=== PATIENT | female | born 1960 | race African-American/Black ===

== ENCOUNTER 2016-07-13 14:24 | Outpatient (CLI) | payer MEDICARE ==
[2016-07-13 14:44] LABS: Prothrombin Time 23.7 SEC (12.0-14.7)
== END 2016-07-13 14:25 | disposition home or self-care (01) ==
LOC: BURLAB 14:24
PROVIDERS: ATTEND Nurse Practitioner
DX: I26.99 Other pulmonary embolism without acute cor pulmonale (principal)
CPT/HCPCS: 36415; 85610

== ENCOUNTER 2016-08-13 13:33 | Outpatient (CLI) | payer MEDICARE ==
[2016-08-13 14:01] LABS: Prothrombin Time 25.5 SEC (12.0-14.7)
== END 2016-08-13 13:34 | disposition home or self-care (01) ==
LOC: BURLAB 13:33
PROVIDERS: ATTEND Nurse Practitioner
DX: I26.99 Other pulmonary embolism without acute cor pulmonale (principal)
CPT/HCPCS: 36415; 85610

== ENCOUNTER 2016-09-20 14:22 | Outpatient (CLI) | payer MEDICARE ==
[2016-09-20 14:46] LABS: Prothrombin Time 28.6 SEC (12.0-14.7)
== END 2016-09-20 14:23 | disposition home or self-care (01) ==
LOC: BURLAB 14:22
PROVIDERS: ATTEND Nurse Practitioner
DX: I26.99 Other pulmonary embolism without acute cor pulmonale (principal)
CPT/HCPCS: 36415; 85610

== ENCOUNTER 2016-10-13 15:18 | Outpatient (CLI) | payer MEDICARE ==
[2016-10-13 15:55] LABS: INR-International Normal Ratio 2.8
== END 2016-10-13 15:19 | disposition home or self-care (01) ==
LOC: BURLAB 15:18
PROVIDERS: ATTEND Nurse Practitioner
DX: I26.99 Other pulmonary embolism without acute cor pulmonale (principal)
CPT/HCPCS: 36415; 85610

== ENCOUNTER 2016-11-17 13:53 | Outpatient (CLI) | payer MEDICARE ==
[2016-11-17 14:18] LABS: INR-International Normal Ratio 2.2; Prothrombin Time 25.2 SEC (12.0-14.7)
== END 2016-11-17 13:54 | disposition home or self-care (01) ==
LOC: BURLAB 13:53
PROVIDERS: ATTEND Family Medicine
DX: I26.99 Other pulmonary embolism without acute cor pulmonale (principal)
CPT/HCPCS: 36415; 85610

== ENCOUNTER 2016-12-15 14:50 | Outpatient (CLI) | payer MEDICARE ==
[2016-12-15 15:14] LABS: INR-International Normal Ratio 2.2; Prothrombin Time 25.5 SEC (12.0-14.7)
== END 2016-12-15 14:51 | disposition home or self-care (01) ==
LOC: BURLAB 14:50
PROVIDERS: ATTEND Nurse Practitioner
DX: I26.99 Other pulmonary embolism without acute cor pulmonale (principal)
CPT/HCPCS: 36415; 85610

== ENCOUNTER 2017-01-12 15:00 | Outpatient (CLI) | payer MEDICARE ==
[2017-01-12 15:51] LABS: INR-International Normal Ratio 1.9; Prothrombin Time 21.9 SEC (12.0-14.7)
== END 2017-01-12 15:01 | disposition home or self-care (01) ==
LOC: BURLAB 15:00
PROVIDERS: ATTEND Nurse Practitioner
DX: I26.99 Other pulmonary embolism without acute cor pulmonale (principal)
CPT/HCPCS: 36415; 85610

== ENCOUNTER 2017-01-27 13:15 | Outpatient (CLI) | payer MEDICARE ==
[2017-01-27 14:04] LABS: INR-International Normal Ratio 1.5; Prothrombin Time 18.4 SEC (12.0-14.7)
== END 2017-01-27 13:16 | disposition home or self-care (01) ==
LOC: BURLAB 13:15
PROVIDERS: ATTEND Nurse Practitioner
DX: I26.99 Other pulmonary embolism without acute cor pulmonale (principal)
CPT/HCPCS: 36415; 85610

== ENCOUNTER 2017-02-09 11:20 | Outpatient (CLI) | payer MEDICARE ==
[2017-02-09 11:46] LABS: INR-International Normal Ratio 1.8; Prothrombin Time 21.8 SEC (12.0-14.7)
== END 2017-02-09 11:21 | disposition home or self-care (01) ==
LOC: BURLAB 11:20
PROVIDERS: ATTEND Nurse Practitioner
DX: I26.99 Other pulmonary embolism without acute cor pulmonale (principal)
CPT/HCPCS: 36415; 85610

== ENCOUNTER 2017-02-28 14:37 | Outpatient (CLI) | payer MEDICARE ==
[2017-02-28 15:02] LABS: INR-International Normal Ratio 1.7; Prothrombin Time 20.6 SEC (12.0-14.7)
== END 2017-02-28 14:38 | disposition home or self-care (01) ==
LOC: BURLAB 14:37
PROVIDERS: ATTEND Nurse Practitioner
DX: I26.99 Other pulmonary embolism without acute cor pulmonale (principal)
CPT/HCPCS: 36415; 85610

== ENCOUNTER 2017-03-14 13:15 | Outpatient (CLI) | payer MEDICARE ==
[2017-03-14 13:40] LABS: INR-International Normal Ratio 3.2; Prothrombin Time 34.4 SEC (12.0-14.7)
== END 2017-03-14 13:16 | disposition home or self-care (01) ==
LOC: BURLAB 13:15
PROVIDERS: ATTEND Nurse Practitioner
DX: I26.99 Other pulmonary embolism without acute cor pulmonale (principal)
CPT/HCPCS: 36415; 85610

== ENCOUNTER 2017-03-29 15:29 | Outpatient (CLI) | payer MEDICARE ==
[2017-03-29 15:51] LABS: INR-International Normal Ratio 2.3; Prothrombin Time 26.5 SEC (12.0-14.7)
== END 2017-03-29 15:30 | disposition home or self-care (01) ==
LOC: BURLAB 15:29
PROVIDERS: ATTEND Nurse Practitioner
DX: I26.99 Other pulmonary embolism without acute cor pulmonale (principal)
CPT/HCPCS: 36415; 85610